=== PATIENT | male | born 1955 | race Caucasian/White ===

== ENCOUNTER 2017-11-16 16:53 | Observation (INO) | payer OTHER ==
[~2017-11-16] VITALS: Ht 177.8 cm; Wt 133.0 kg
[~2017-11-16 16:53] MED LIST: BACT800T5 PO; BUPR-197 PO; LISI-357 PO; LORTA10 PO; METH500T3 PO; SULF1SOL4 LEFT EAR; TRAZ100 PO; [UNRECOGNIZED DRUG - REMARK] PO
[2017-11-16 17:12] VITALS: BP 139/78; PULSE 71; RESP 24; TEMP 98.6; O2SAT 98
[2017-11-16] MEDS ORDERED: SODIUM CHLORIDE 0.9% FLUSH 10 ML FLUSH IVF PRN (17:30)
--- NOTE | 2017-11-16 17:30 | PD ---
HPI Chief Complaint: Cardiac Complaint Time Seen by Provider: 16:56 Travel History International Travel<30 days: No Contact w/Intl Traveler<30days: No Traveled to known affect area: No History of Present Illness HPI This patient was seen by his [place] physician today and ambulance to the emergency department for evaluation. He has history of CAD and has multiple stents in place. No recent stress testing. He has had periodic sternal chest pressure and heaviness over the last several months. The last time was one week ago. He has occasional exertional dyspnea as well. [facility] and they gave him an aspirin and did an EKG and sent him here. He is currently chest pain-free. Symptoms are moderate when occurring. No alleviating factors. Symptoms are exacerbated by exertion. Duration is 3 months. PFSH Past Medical History Hx Anticoagulant Therapy: Yes (81MG ASA) Blood Disorders: No Anxiety: Yes Depression: Yes Heart Rhythm Problems: Yes Cancer: No Cardiac Catheterization: Yes Cardiovascular Problems: Yes (3 STENTS; ZHONG) High Cholesterol: Yes Chemotherapy: No Chest Pain: Yes Congestive Heart Failure: No COPD: Yes Coronary Artery Disease: Yes Diabetes: Yes Patient Takes Glucophage: Yes Diminished Hearing: Yes Endocrine: No Gastrointestinal Disorders: Yes (DIVERTICULITIS) GERD: Yes Glaucoma: No Genitourinary: Yes Headaches: Yes (CHRONIC) Hypertension: Yes Immune Disorder: No Implanted Vascular Access Dvce: Yes Kidney Stones: Yes Musculoskeletal: Yes (back problems, FX ANKLE CLOSED RED.) Neurologic: Yes (hands shake,) Psychiatric: Yes (bipolar) Reproductive: No Respiratory: Yes (COPD) Immunizations Current: Yes Myocardial Infarction: Yes Sleep Apnea: Yes Thyroid Disease: No Ulcer: Yes (DUODENAL HX OF) Past Surgical History AICD: No Body Medical Devices: CARDIAC STENTS Coronary Artery Bypass Graft: No Coronary Stent: Yes (DECEMBER 2008 2ND PLACED) Neurologic Surgery: No Pacemaker: No Other Surgery: Yes Family History Family Myocardial Infarction: Yes Social History Alcohol Use: No Tobacco Use: No (quit) Substance Use: No Allergies-Medications (Allergen,Severity, Reaction): Coded Allergies: amoxicillin (Unverified Allergy, Severe, 11/16/17) metoprolol (Unverified Allergy, Severe, RASH, 11/16/17) simvastatin (Unverified Allergy, Severe, MYOSITOSIS, 11/16/17) peach (Unverified Allergy, Intermediate, ITCHING, 11/16/17) Penicillins (Verified Allergy, Unknown, Hives, 11/16/17) ciprofloxacin (Unverified Allergy, Unknown, 11/16/17) Reported Meds & Prescriptions Reported Meds & Active Scripts Active Sulfacetamide Sodium 10 % Mia 3 Drop LEFT EAR BID 10 Days Bactrim DS (Sulfamethoxazole-Trimethoprim DS) 1 Tab Tab 1 Tab PO BID Reported [allergytab] 1 Tab PO TID Methocarbamol 500 Mg Tab 1,000 Mg PO DAILY Hydrocodone/Acetaminophen 10 mg/325 mg Acetaminophen 325/10 Hydrocodone Tab 1 Tab PO Q4H PRN Lisinopril 5 mg (Lisinopril) 5 Mg Tab 2.5 Mg PO DAILY Wellbutrin (Bupropion HCl) 100 Mg Tab 100 Mg PO BID Trazodone Hcl (Trazodone HCl) 100 Mg Tab 200 Mg PO HS Review of Systems General / Constitutional: No: Fever Eyes: No: Visual changes HENT: No: Headaches Cardiovascular: Positive: Chest Pain or Discomfort Respiratory: Positive: Shortness of Breath Gastrointestinal: No: Abdominal Pain Genitourinary: No: Dysuria Musculoskeletal: Positive: Pain Skin: No Rash Neurologic: No: Weakness Psychiatric: No: Depression Endocrine: No: Polydipsia Hematologic/Lymphatic: No: Easy Bruising Physical Exam Narrative GENERAL: Well-nourished, well-developed patient in no apparent distress. SKIN: Focused skin assessment reveals no rash and nodules. Skin is Warm and dry. HEAD: Atraumatic. Normocephalic. EYES: Pupils equal and round. No scleral icterus. No injection or drainage. ENT: No nasal bleeding or discharge. Mucous membranes pink and moist. NECK: Trachea midline. No JVD. CARDIOVASCULAR: Regular rate and rhythm. No murmur appreciated. RESPIRATORY: No accessory muscle use. Clear to auscultation. Breath sounds equal bilaterally. GASTROINTESTINAL: Abdomen soft, non-tender, nondistended. Hepatic and splenic margins not palpable. MUSCULOSKELETAL: No obvious deformities. No clubbing. No cyanosis. No edema. NEUROLOGICAL: Awake and alert. No obvious cranial nerve deficits. Motor grossly within normal limits. Normal speech. PSYCHIATRIC: Appropriate mood and affect; insight and judgment normal. Data Data Last Documented VS Vital Signs Date Time Temp Pulse Resp B/P (MAP) Pulse Ox O2 Delivery O2 Flow Rate FiO2 11/16/17 17:12 Nasal Cannula 2.00 11/16/17 17:12 98.6 71 24 139/78 (98) 98 Orders Orders Electrocardiogram (11/16/17 17:22) Basic Metabolic Panel (Bmp) (11/16/17 17:22) Ckmb (Isoenzyme) Profile (11/16/17 17:22) Complete Blood Count With Diff (11/16/17 17:22) Prothrombin Time / Inr (Pt) (11/16/17 17:22) Act Partial Throm Time (Ptt) (11/16/17 17:22) Troponin I (11/16/17 17:22) Chest, Single Ap (11/16/17 17:22) Ecg Monitoring (11/16/17 17:22) Iv Access Insert/Monitor (11/16/17 17:22) Oximetry (11/16/17 17:22) Sodium Chloride 0.9% Flush (Ns Flush) (11/16/17 17:30) CKMB (11/16/17 17:25) CKMB% (11/16/17 17:25) Admit Order (Ed Use Only) (11/16/17 18:26) Labs Laboratory Tests Test 11/16/17 17:25 White Blood Count 10.7 TH/MM3 Red Blood Count 5.05 MIL/MM3 Hemoglobin 15.8 GM/DL Hematocrit 46.6 % Mean Corpuscular Volume 92.3 FL Mean Corpuscular Hemoglobin 31.3 PG Mean Corpuscular Hemoglobin Concent 34.0 % Red Cell Distribution Width 14.2 % Platelet Count 326 TH/MM3 Mean Platelet Volume 7.0 FL Neutrophils (%) (Auto) 66.0 % Lymphocytes (%) (Auto) 17.3 % Monocytes (%) (Auto) 10.6 % Eosinophils (%) (Auto) 5.6 % Basophils (%) (Auto) 0.5 % Neutrophils # (Auto) 7.0 TH/MM3 Lymphocytes # (Auto) 1.8 TH/MM3 Monocytes # (Auto) 1.1 TH/MM3 Eosinophils # (Auto) 0.6 TH/MM3 Basophils # (Auto) 0.1 TH/MM3 CBC Comment DIFF FINAL Differential Comment Prothrombin Time 11.3 SEC Prothromb Time International Ratio 1.1 RATIO Activated Partial Thromboplast Time 25.0 SEC Blood Urea Nitrogen 23 MG/DL Creatinine 1.31 MG/DL Random Glucose 120 MG/DL Calcium Level 8.7 MG/DL Sodium Level 139 MEQ/L Potassium Level 4.5 MEQ/L Chloride Level 101 MEQ/L Carbon Dioxide Level 34.7 MEQ/L Anion Gap 3 MEQ/L Estimat Glomerular Filtration Rate 56 ML/MIN Total Creatine Kinase 125 U/L Troponin I LESS THAN 0.02 NG/ML MDM Medical Decision Making Medical Screen Exam Complete: Yes Emergency Medical Condition: Yes Medical Record Reviewed: Yes Differential Diagnosis Differential diagnosis includes OR, angina, pericarditis, pleurisy, GERD, anxiety. Narrative Course I have reviewed the patient's electronic medical record. I reviewed his [facility] history and physical from today I reviewed an EKG which shows sinus rhythm. There is no acute ST elevations in contiguous leads. It looks like a half millimeter ST elevation in lead 2. However when I compare it to an old EKG from one year ago it looks the same. I believe this is his baseline. Extended cardiac monitoring reveals sinus rhythm without ectopy He's had multiple aspirin today I have sent lab studies and ordered a chest x-ray Chest x-ray shows a bit of haziness but he does not have any clinical pneumonia signs More concerning is his chest pain that he gets intermittently Cardiac enzymes are normal CBC metabolic profile recently normal other than mild renal insufficiency, GFR 56 Patient will be a 23 hour observation in the chest pain center in order to rule out cardiac cause of his symptoms. He is grudgingly agreeable Diagnosis Primary Impression: Chest pain in adult Admitting Information Admitting Physician Requests: Observation Nikolai Arteaga MD Nov 16, 2017 17:30
[2017-11-16 17:49] LABS: BASOPHIL # 0.1 TH/MM3 (0-0.2); BASOPHIL % 0.5 % (0.0-2.0); EOSINOPHIL # 0.6 TH/MM3 (0-0.4); EOSINOPHIL % 5.6 % (0.0-4.0); HEMATOCRIT 46.6 % (39.0-51.0); HEMOGLOBIN 15.8 GM/DL (13.0-17.0); LYMPH % 17.3 % (9.0-44.0); LYMPHOCYTE # 1.8 TH/MM3 (1.0-4.8); MEAN CELL VOLUME 92.3 FL (80.0-100.0); MEAN CORPUSCULAR HEMOGLOBIN 31.3 PG (27.0-34.0); MONO % 10.6 % (0.0-8.0); MONOCYTE # 1.1 TH/MM3 (0-0.9); PLATELET COUNT 326 TH/MM3 (150-450); RED BLOOD COUNT 5.05 MIL/MM3 (4.50-5.90); RED CELL DISTRIBUTION WIDTH 14.2 % (11.6-17.2); WHITE BLOOD COUNT 10.7 TH/MM3 (4.0-11.0)
--- NOTE | 2017-11-16 17:52 | RADRPT ---
EXAM DATE/TIME: 11/16/2017 17:36 [facility] COMPARISON: CHEST SINGLE AP, September 25, 2015, 20:34. INDICATIONS : Chest pain. MEDICAL HISTORY : Hypercholesterolemia. Hypertension. Gastroesophageal reflux disease.Cardiovascular disease. SURGICAL HISTORY : None. ENCOUNTER: Initial ACUITY: 1 day PAIN SCORE: 5/10 LOCATION: Bilateral chest FINDINGS: There is stable slight elevation/eventration of the right diaphragm. There is minimal streaky opacity in the right perihilar region. Left lung is grossly clear. Cardiac contours are stable accounting fo r differences in technique and projection. CONCLUSION: Mild streaky right perihilar parenchymal opacity Cortes Eastman MD on November 16, 2017 at 17:50 Board Certified Radiologist. This report was verified electronically.
[2017-11-16 17:57] LABS: INTERNATIONAL NORMALIZED RATIO 1.1 RATIO; PROTHROMBIN TIME - PATIENT 11.3 SEC (9.8-11.6)
[2017-11-16 18:18] LABS: BICARBONATE 34.7 MEQ/L (21.0-32.0); BLOOD UREA NITROGEN 23 MG/DL (7-18); CALCIUM 8.7 MG/DL (8.5-10.1); CHLORIDE 101 MEQ/L (98-107); CREATININE 1.31 MG/DL (0.60-1.30); GLOMERULAR FILTRATION RATE 56 ML/MIN (>89); GLUCOSE,RANDOM 120 MG/DL (74-106); SODIUM (NA) 139 MEQ/L (136-145); TROPONIN I LESS THAN 0.02 NG/ML (0.02-0.05)
[2017-11-16] MEDS ORDERED: SODIUM CHLORIDE 0.9% FLUSH 10 ML FLUSH IV FLUSH PRN (18:30)
[2017-11-16] MEDS ORDERED: ONDANSETRON HCL 4 MG/2 ML VIAL IV PUSH PRN (18:30)
[2017-11-16] MEDS ORDERED: LOSA100T PO (18:51)
[2017-11-16] MEDS ORDERED: CETI10CH CHEW (18:51)
[2017-11-16] MEDS ORDERED: REFR0.5D9 EACH EYE (18:51)
[2017-11-16] MEDS ORDERED: ATOR80TA45 PO (18:51)
[2017-11-16] MEDS ORDERED: SULF1TAB23 PO (18:51)
[2017-11-16] MEDS ORDERED: POLY17S PO (18:51)
[2017-11-16] MEDS ORDERED: [UNRECOGNIZED DRUG - OTHER] TOPICAL (18:51)
[2017-11-16] MEDS ORDERED: CLOT1CRE23 TOPICAL (18:51)
[2017-11-16] MEDS ORDERED: ASPI81TA23 PO (18:51)
[2017-11-16] MEDS ORDERED: DIVA500T PO (18:51)
[2017-11-16] MEDS ORDERED: BUPR150CR PO (18:51)
[2017-11-16] MEDS ORDERED: HYDR-3583 PO (18:51)
[2017-11-16] MEDS ORDERED: OMEP40CA2 PO (18:51)
[2017-11-16] MEDS ORDERED: VITATAB11 PO (18:51)
[2017-11-16] MEDS ORDERED: BRIM0.2S4 EACH EYE (18:51)
[2017-11-16] MEDS ORDERED: FLUT50SP EACH NARE (18:51)
[2017-11-16] MEDS ORDERED: VITA1000 PO (18:51)
[2017-11-16] MEDS ORDERED: METF500T4 PO (18:51)
[2017-11-16] MEDS ORDERED: TRAZ100T10 PO (18:51)
[2017-11-16] MEDS ORDERED: VENTAER INH (18:51)
[2017-11-16] MEDS ORDERED: CORT15T TOPICAL (18:51)
[2017-11-16] MEDS ORDERED: MAGN400T2 PO (18:51)
[2017-11-16] MEDS ORDERED: METH500T3 PO (18:51)
[2017-11-16] MEDS ORDERED: EMPA1TAB3 PO (18:51)
[2017-11-16] MEDS ORDERED: ALFU10TA2 PO (18:51)
[2017-11-16] MEDS ORDERED: VIAG100T PO (18:51)
[2017-11-16] MEDS ORDERED: LATA0.002 EACH EYE (18:51)
[2017-11-16] MEDS ORDERED: OXYB5TAB8 PO (18:51)
[2017-11-16 19:38] VITALS: BP 161/74; PULSE 98; RESP 16; TEMP 98; O2SAT 96
[2017-11-16] MEDS: SODIUM CHLORIDE 0.9% FLUSH 10 ML FLUSH IV FLUSH SCH (20:54)
[2017-11-16 21:24] VITALS: PULSE 61
[2017-11-16 21:28] LABS: TROPONIN I LESS THAN 0.02 NG/ML (0.02-0.05)
[2017-11-16 23:52] VITALS: PULSE 54
[2017-11-17 00:24] LABS: TROPONIN I LESS THAN 0.02 NG/ML (0.02-0.05)
[2017-11-17 00:31] VITALS: BP 194/103; PULSE 102; RESP 14; TEMP 97.8; O2SAT 96
[2017-11-17] MEDS ORDERED: amLODIPine BESYLATE 5 MG TAB PO SCH (01:00)
[2017-11-17 02:34] VITALS: BP 135/79; PULSE 86; RESP 16; O2SAT 98
[2017-11-17 04:53] VITALS: BP 141/91; PULSE 73; RESP 16; TEMP 98.7; O2SAT 98
[2017-11-17] MEDS ORDERED: NITROGLYCERIN 0.4 MG SL 25 TABS/BTL SL PRN (07:15)
[2017-11-17] MEDS ORDERED: ACETAMINOPHEN 500 MG CPLT PO PRN (07:15)
[2017-11-17 07:45] VITALS: PULSE 76
--- NOTE | 2017-11-17 07:57 | HHI.HP ---
HPI Primary Care Physician [facility] Chief Complaint Dyspnea and fatigue History of Present Illness 61-year-old male with known coronary artery disease, x3 cardiac stents,, and diabetes presents to emergency room after regular scheduled appointment with his PCP at [facility]. He is obviously upset with transfer to hospital. Denies ever having any chest discomfort and reports he went to [place] to have his "ears cleaned out." Reports chronic exertional dyspnea and fatigue. States he is "fed up with exertional dyspnea and fatigue so I wanted the [facility] to give me a note I can't work." EKG, chest x-ray and lab work completed at [place] and reports the next thing he knew he was being transferred to ER and wasn't told why. Dyspnea occurs after walking short distances, quickly recovers after rest. No known asthma or COPD. No recent illness, cough, or wheezing. [place] restricted his lifting to no more than 20 pounds, but upset because his employer disregards this restriction. Chronic fatigue, denies worsening fatigue. His "normal angina " pain described as left inframammary area, radiation to left arm, stabbing pain. Denies recent chest discomfort. Review of Systems General: No increase in fatigue, no weakness, fever, chills, recent illness, or change in appetite. Chronic fatigue for "years." HEENT: No ZHONG, no vision changes, no nasal congestion or drainage, no dysphasia CV: Denies every having any chest pain or discomfort. No palpitations or dizziness. RESP: Chronic exertional dyspnea, No current SOB. No cough, wheeze, asthma, or known COPD. States one doctor told him he does have COPD and another doctor told he doesn't. GI: No nausea, vomiting, or bowel changes. No change in appetite, no unintentional weight gain or weight loss. : No dysuria, urgency, frequency EXT: No lower leg edema, no paraesthesias MS: No discomfort or change in ROM NEURO: No change in memory, difficulty with balance, LOC, motor/sensory deficits PSYCH: No anxiety, depression SKIN: No rashes, no concerning lesions Past Family Social History Allergies: Coded Allergies: amoxicillin (Unverified Allergy, Severe, 11/16/17) metoprolol (Unverified Allergy, Severe, RASH, 11/16/17) simvastatin (Unverified Allergy, Severe, MYOSITOSIS, 11/16/17) peach (Unverified Allergy, Intermediate, ITCHING, 11/16/17) Penicillins (Verified Allergy, Unknown, Hives, 11/16/17) ciprofloxacin (Unverified Allergy, Unknown, 11/16/17) Past Medical History Coronary artery disease, x3 cardiac stents, hyperlipidemia, type 2 diabetes, hypertension, COPD, anxiety, depression, diverticulitis, GERD, chronic fatigue, bipolar disorder, sleep apnea Past Surgical History x3 cardiac stents Reported Medications Reported Meds & Active Scripts Active Reported Vitamin B Complex (B-Complex Vitamins) 1 Tab 1 Tab PO DAILY Trazodone (Trazodone HCl) 100 Mg Tablet 200 Mg PO HS Sulfamethoxazole-Trimethoprim 800-160 Mg Tab 1 Tab PO BID Viagra (Sildenafil Citrate) 100 Mg Tab 100 Mg PO DAILY PRN Sebex Topical (Salicylic Acid/Sulfur) 2-2 % Sham 1 Applic TOPICAL [id number] Polyethylene Glycol 3350 Powder (Polyethylene Glycol) 17 Gram Pow 17 Gm PO DAILY Ditropan (Oxybutynin Chloride) 5 Mg Tab 5 Mg PO Q12HR Omeprazole 40 Mg Cap 40 Mg PO BID Methocarbamol 500 Mg Tab 1,000 Mg PO DAILY Metformin ER (Metformin HCl) 500 Mg Khang 500 Mg PO BID With evening meal Magnesium Oxide 400 Mg Tab 400 Mg PO DAILY Losartan (Losartan Potassium) 100 Mg Tab 50 Mg PO DAILY Latanoprost Opth Drops (Latanoprost) 0.005% Drops 1 Drop EACH EYE HS Refrigerate until opened. Hydrocodone-Acetaminophen 10-325 mg Tab 1 Tab PO TID PRN Cortisporin Topical (Neomycin/Polymyxin/Bacitr/Hydrocort) 1 Application Oint 1 Applic TOPICAL QID Therapy with this product should be limited to 7 days Fluticasone Nasal Butler 50 Mcg/Act Naspr 50 Mcg EACH NARE BID 50 mcg/spray Jardiance (Empagliflozin) 25 Mg Tab 12.5 Mg PO DAILY Divalproex DR (Divalproex Sodium) 500 Mg Tabdr 500 Mg PO HS Clotrimazole 7 Vaginal (Clotrimazole Vaginal) 1% Cream 1 Appl TOPICAL HS Vitamin D-1000 (Cholecalciferol) 1,000 Unit Tab 1,000 Units PO DAILY Cetirizine (Cetirizine HCl) 10 Mg Chew 10 Mg CHEW DAILY Refresh Plus Unit-Dose 0.5% Opth (Carboxymethylcellulose Sodium 0.5% Opth) 0.5% Drops 1 Drop EACH EYE QID Wellbutrin SR 12 HR (Bupropion HCl) 150 Mg Tab 150 Mg PO Q12HR Brimonidine Opth Drops (Brimonidine Tartrate) 0.2% Soln 1 Drop EACH EYE BID Atorvastatin (Atorvastatin Calcium) 80 Mg Tab 80 Mg PO HS Aspirin EC (Aspirin) 81 Mg Tabdr 81 Mg PO DAILY Alfuzosin ER 24 HR 10 Mg Tab 10 Mg PO DAILY Ventolin Hfa 18 GM Inh (Albuterol Sulfate) 90 Mcg/Act Aer 2 Puff INH Q4-6H PRN Active Ordered Medications Current Medications Medications (Trade) Dose Ordered Sig/Guillaume Route Start Time Stop Time Status Last Admin (NS Flush) 2 ml UNSCH PRN IV FLUSH 11/16/17 18:30 (NS Flush) 2 ml BID IV FLUSH 11/16/17 21:00 11/16/17 20:54 (Zofran Inj) 4 mg Q6H PRN IV PUSH 11/16/17 18:30 (Aspirin) 325 mg DAILY PO 11/17/17 09:00 (Tylenol) 500 mg Q4H PRN PO 11/17/17 07:15 (Nitrostat Sl) 0.4 mg Q5M PRN SL 11/17/17 07:15 Social History Known coronary artery disease, diabetes, hypertension, and hyperlipidemia. Former smoker. Denies any alcohol or illegal drug use. Past cardiac testing Does not follow with a machine filler shredder. No recent cardiac testing, but remembers having a chemical stress since cardiac catheterization since 2010. 09/03/11 Lexiscan-small area decreased perfusion at stress of inferior septal wall. 09/04/11 cardiac catheterization (Dr. Hopkins) Conclusions: 1. Mild to moderate coronary artery disease. Medically manage. 2. Patent circumflex stent. 3. Normal left ventricular function. Physical Exam Vital Signs Vital Signs Date Time Temp Pulse Resp B/P (MAP) Pulse Ox O2 Delivery O2 Flow Rate FiO2 11/17/17 04:53 98.7 73 16 141/91 (108) 98 11/17/17 02:34 86 16 135/79 (97) 98 11/17/17 00:31 97.8 102 14 194/103 (133) 96 11/16/17 23:52 54 11/16/17 21:24 61 11/16/17 19:38 98.0 98 16 161/74 (103) 96 11/16/17 19:22 11/16/17 17:12 Nasal Cannula 2.00 11/16/17 17:12 98.6 71 24 139/78 (98) 98 Nasal Cannula 2.00 Physical Exam GENERAL: Alert WN, WD, NAD, obese, male HEAD: NC, AT EYES: Sclera clear, conjunctiva without injection, pupils equal and round ENT: Mucous membranes pink and moist CV: RRR, 2/6 systolic murmur, no rub, gallop, or JVD, S1-S2 no S3-S4. Chest wall nontender with palpation. RESP: Clear lungs throughout bilateral, no crackles, wheeze, rhonchi, symmetrical chest rise, nonlabored, able to speak in full sentences ABD: Soft, NT, ND, no masses, positive bowel tones EXT: Pulses +24, trace bilateral pedal edema MS: Normal tone 4 extremities, no obvious deformities, full range of motion NEURO: CN II through CN XII grossly intact, motor strength 5/5 PSYCH: A+O 3, pleasant affect, appropriate speech, mood, insight and judgment SKIN: Normal turgor, normal texture, no lesions, no rashes, brisk cap refill, even hair distribution Laboratory Laboratory Tests Test 11/16/17 17:25 11/16/17 21:00 11/16/17 23:50 White Blood Count 10.7 Red Blood Count 5.05 Hemoglobin 15.8 Hematocrit 46.6 Mean Corpuscular Volume 92.3 Mean Corpuscular Hemoglobin 31.3 Mean Corpuscular Hemoglobin Concent 34.0 Red Cell Distribution Width 14.2 Platelet Count 326 Mean Platelet Volume 7.0 Neutrophils (%) (Auto) 66.0 Lymphocytes (%) (Auto) 17.3 Monocytes (%) (Auto) 10.6 Eosinophils (%) (Auto) 5.6 Basophils (%) (Auto) 0.5 Neutrophils # (Auto) 7.0 Lymphocytes # (Auto) 1.8 Monocytes # (Auto) 1.1 Eosinophils # (Auto) 0.6 Basophils # (Auto) 0.1 CBC Comment DIFF FINAL Differential Comment Prothrombin Time 11.3 Prothromb Time International Ratio 1.1 Activated Partial Thromboplast Time 25.0 Blood Urea Nitrogen 23 Creatinine 1.31 Random Glucose 120 Calcium Level 8.7 Sodium Level 139 Potassium Level 4.5 Chloride Level 101 Carbon Dioxide Level 34.7 Anion Gap 3 Estimat Glomerular Filtration Rate 56 Total Creatine Kinase 125 105 112 Creatine Kinase MB 3.3 2.9 3.0 Troponin I LESS THAN 0.02 LESS THAN 0.02 LESS THAN 0.02 Result Diagram: 11/16/17 1725 11/16/17 1725 Imaging Last 48 hours Impressions Chest X-Ray 11/16/17 1722 Signed Impressions: Service Date/Time: Thursday, November 16, 2017 17:36 - CONCLUSION: Mild streaky right perihilar parenchymal opacity Cortes Eastman MD Course EKG First-degree AV block, no ST changes, Q waves inferiorly Caprini VTE Risk Assessment Caprini VTE Risk Assessment: Mod/High Risk (score >= 2) Caprini Risk Assessment Model Point Value = 1 Point Value = 2 Point Value = 3 Point Value = 5 Age 41-60 Minor surgery BMI > 25 kg/m2 Swollen legs Varicose veins or History of unexplained or recurrent spontaneous Oral contraceptives or hormone replacement Sepsis (< 1 month) Serious lung disease, including pneumonia (< 1 month) Abnormal pulmonary function Acute myocardial infarction Congestive heart failure (< 1 month) History of inflammatory bowel disease Medical patient at bed rest Age 61-74 Arthroscopic surgery Major open surgery (> 45 min) Laparoscopic surgery (> 45 min) Malignancy Confined to bed (> 72 hours) Immobilizing plaster cast Central venous access Age >= 75 History of VTE Family history of VTE Factor V Leiden Prothrombin [id number] Lupus anticoagulant Anticardiolipin antibodies Elevated serum homocysteine Heparin-induced thrombocytopenia Other congenital or acquired thrombophilia Stroke (< 1 month) Elective arthroplasty Hip, pelvis, or leg fracture Acute spinal cord injury (< 1 month) Prophylaxis Regimen Total Risk Factor Score Risk Level Prophylaxis Regimen 0-1 Low Early ambulation 2 Moderate Order ONE of the following: *Sequential Compression Device (SCD) *Heparin 5000 units SQ BID 3-4 Higher Order ONE of the following medications: *Heparin 5000 units SQ TID *Enoxaparin/Lovenox 40 mg SQ daily (WT < 150 kg, CrCl > 30 mL/min) *Enoxaparin/Lovenox 30 mg SQ daily (WT < 150 kg, CrCl > 10-29 mL/min) *Enoxaparin/Lovenox 30 mg SQ BID (WT < 150 kg, CrCl > 30 mL/min) AND/OR *Sequential Compression Device (SCD) 5 or more Highest Order ONE of the following medications: *Heparin 5000 units SQ TID (Preferred with Epidurals) *Enoxaparin/Lovenox 40 mg SQ daily (WT < 150 kg, CrCl > 30 mL/min) *Enoxaparin/Lovenox 30 mg SQ daily (WT < 150 kg, CrCl > 10-29 mL/min) *Enoxaparin/Lovenox 30 mg SQ BID (WT < 150 kg, CrCl > 30 mL/min) AND *Sequential Compression Device (SCD) Assessment and Plan Assessment and Plan #1 Exertional dyspnea-admitted to chest pain center. Ruled out with 3 sets of EKGs, cardiac enzymes, and monitored on telemetry overnight. Seen and evaluated by Dr. Sarah Hopkins. Encouraged completing chemical cardiac testing, explaining cardiac symptoms may present with exertinal dyspnea. Patient agreeable to plan of care. Strongly encouraged establishing with a machine filler shredder with his known CAD. Verbalized understanding. Marina Morel Nov 17, 2017 07:57
[2017-11-17 08:25] VITALS: BP 160/92; PULSE 76; RESP 20; TEMP 97.6; O2SAT 94
[2017-11-17] MEDS: SODIUM CHLORIDE 0.9% FLUSH 10 ML FLUSH IV FLUSH SCH (09:00)
[2017-11-17] MEDS ORDERED: ASPIRIN 325 MG TAB PO SCH (09:00)
[2017-11-17] MEDS ORDERED: buPROPion HCL 150 MG SUSTAINED RELEASE TAB PO SCH (09:30)
[2017-11-17] MEDS ORDERED: LOSARTAN 50 MG TAB PO SCH (09:30)
[2017-11-17] MEDS ORDERED: metFORMIN HCL 500 MG TAB PO SCH (10:00)
[2017-11-17] MEDS ORDERED: EMPAGLIFLOZIN PO SCH (10:00)
[2017-11-17] MEDS ORDERED: PANTOPRAZOLE SOD 40 MG DELAYED RELEASE TAB PO SCH (10:00)
[2017-11-17] MEDS ORDERED: REGADENOSON INJ 0.4 MG/5 ML SYR ONE (10:06)
[2017-11-17] MEDS ORDERED: MAGNESIUM OXIDE 400 MG TAB PO SCH (11:00)
[2017-11-17 12:22] VITALS: BP 158/93; PULSE 74; RESP 20; TEMP 98.1; O2SAT 94
--- NOTE | 2017-11-17 13:33 | RADRPT ---
EXAM DATE/TIME: 11/17/2017 10:20 [facility] COMPARISON: MYOCARDIAL PERF PHARM SPECT, GATED W/EF, September 03, 2011, 12:56. INDICATIONS : Chest pain and dyspnea for several months. Angina. DOSE: 35.0 mCi Tc99m Myoview at stress. 11.0 mCi Tc99m Myoview at rest. 0.4 mg Lexiscan STRESS SYMPTOMS: Short of breath. EJECTION FRACTION: 46% MEDICAL HISTORY : Chronic obstructive pulmonary disease. Hypercholesterolemia. Diabetes mellitus type 2. Bipolar. SURGICAL HISTORY : Total knee replacement, left. Total knee replacement, right. ENCOUNTER: Sequela ACUITY: 2 months PAIN SCALE: 3/10 LOCATION: Bilateral chest TECHNIQUE: The patient underwent pharmacologic stress with infusion of prescribed dose. Continuous ECG tracing was monitored during stress. Gated SPECT imaging was performed after stress and conventional SPECT i maging was performed at rest. The examination was performed on a SPECT/CT scanner, both attenuation and non-corrected datasets were reviewed. FINDINGS: DISTRIBUTION: The maximum perfused segment at stress is in the <anterior mid wall> wall. PERFUSION STUDY: The pattern of perfusion at stress is within normal limits. GATED STUDY: There is intact wall motion and thickening without hypokinetic or dyskinetic segments. CONCLUSION: Decreased ejection fraction at only 46%. No large fixed defects or areas redistribution identified. RISK CATEGORY: Low (<1% Annual Mortality Rate) Juancho Bernard MD on November 17, 2017 at 13:31 Board Certified Radiologist. This report was verified electronically.
--- NOTE | 2017-11-17 13:55 | HHI.DCPOC ---
Discharge Care Plan Diagnosis: (1) Dyspnea, unspecified (2) Atypical chest pain (3) Hx of coronary artery disease Goals to Promote Your Health * To prevent worsening of your condition and complications * To maintain your health at the optimal level Directions to Meet Your Goals Take your medications as prescribed Follow your dietary instruction Follow activity as directed Keep your appointments as scheduled Take your immunizations and boosters as scheduled If your symptoms worsen call your PCP, if no PCP go to Urgent Care Center or Emergency Room Smoking is Dangerous to Your Health. Avoid second hand smoke Call the 24-hour hour crisis hotline for domestic abuse at Marina Morel Nov 17, 2017 13:55
--- NOTE | 2017-11-17 17:59 | EKG ---
Date Performed: 11/16/2017 Time Performed: 21:25:34 PTAGE: 61 years EKG: Sinus rhythm WITH FIRST DEGREE AV BLOCK INFERIOR MYOCARDIAL INFARCTION ABNORMAL ECG Since PREVIOUS TRACING , no significant change noted PREVIOUS TRACIN11/16/2017 17.04 DOCTOR: Sarah Hopkins Interpretating Date/Time 11/17/2017 17:58:06
--- NOTE | 2017-11-17 18:00 | EKG ---
Date Performed: 11/17/2017 Time Performed: 06:34:04 PTAGE: 61 years EKG: Sinus rhythm WITH FIRST DEGREE AV BLOCK INFERIOR MYOCARDIAL INFARCTION ABNORMAL ECG Since PREVIOUS TRACING , no significant change noted PREVIOUS TRACIN11/16/2017 23.55 DOCTOR: Sarah Hopkins Interpretating Date/Time 11/17/2017 17:59:25
--- NOTE | 2017-11-17 18:02 | TR ---
Date Performed: 11/17/2017 Time Performed: 10:45:29 DOCTOR: Sarah Hopkins DRUG LIST: CLINICAL HISTORY: ANGINA REASON FOR TEST: Angina REASON FOR ENDING: OBSERVATION: CONCLUSION: Lexiscan stress test was performed under standard four minute protocol. Radionuclid e was injected one minute prior to ending the test. No electrocardiographic abormalities were present to suggest ischemia. Nuclear imaging and interpretation are pending. COMMENTS:
--- NOTE | 2017-11-17 18:08 | EKG ---
Date Performed: 11/16/2017 Time Performed: 17:04:58 PTAGE: 61 years EKG: Sinus rhythm WITH FIRST DEGREE AV BLOCK INFERIOR MYOCARDIAL INFARCTION ABNORMAL ECG Since PREVIOUS TRACING , no significant change noted PREVIOUS TRACIN11/16/2017 17.03 DOCTOR: Sarah Hopkins Interpretating Date/Time 11/17/2017 18:08:16
[2017-11-17] MEDS ORDERED: DIVALPROEX DR 500 MG TABEC PO SCH (21:00)
--- NOTE | 2017-11-18 10:19 | EKG ---
Date Performed: 11/16/2017 Time Performed: 23:55:42 PTAGE: 61 years EKG: Sinus rhythm WITH FIRST DEGREE AV BLOCK INFERIOR MYOCARDIAL INFARCTION ABNORMAL ECG Since PREVIOUS TRACING , no significant change noted PREVIOUS TRACIN11/16/2017 21.25 DOCTOR: Sarah Hopkins Interpretating Date/Time 11/18/2017 10:18:35
== END 2017-11-17 17:14 | disposition home or self-care (01) ==
LOC: NEPE 16:53 → NEDA 18:28 → NEPGCP 19:27
PROVIDERS: ADMIT Internal Medicine Cardiovascular Disease; ATTEND Internal Medicine Cardiovascular Disease
DX: R06.09 Other forms of dyspnea (principal); I25.119 Atherosclerotic heart disease of native coronary artery with unspecified angina pectoris; I10 Essential (primary) hypertension; I44.0 Atrioventricular block, first degree; R94.31 Abnormal electrocardiogram [ECG] [EKG]; E78.00 Pure hypercholesterolemia, unspecified; J44.9 Chronic obstructive pulmonary disease, unspecified; E11.9 Type 2 diabetes mellitus without complications; I25.2 Old myocardial infarction; K21.9 Gastro-esophageal reflux disease without esophagitis; R51 Headache; G47.30 Sleep apnea, unspecified; N28.9 Disorder of kidney and ureter, unspecified; F41.9 Anxiety disorder, unspecified; F31.9 Bipolar disorder, unspecified; H91.90 Unspecified hearing loss, unspecified ear; E66.9 Obesity, unspecified; Z95.5 Presence of coronary angioplasty implant and graft; Z79.899 Other long term (current) drug therapy; Z79.82 Long term (current) use of aspirin; Z87.891 Personal history of nicotine dependence; Z96.653 Presence of artificial knee joint, bilateral
CPT/HCPCS: 71045; 78452; 80048; 82550; 82552; 84484; 85025; 85610; 85730; 93005; 93017; 99285; A9502; G0378; J2785